=== PATIENT | male | born 1970 | race Caucasian/White ===

== ENCOUNTER 2016-11-17 13:43 | Emergency (ER) | payer SELFPAY ==
[~2016-11-17] VITALS: Ht 182.9 cm; Wt 105.0 kg
[2016-11-17 14:18] LABS: URINE BILIRUBIN - DIPSTICK NEGATIVE (NEGATIVE); URINE BLOOD DIPSTICK MODERATE (NEGATIVE); URINE CLARITY CLEAR; URINE COLOR YELLOW; URINE GLUCOSE - DIPSTICK NEGATIVE (NEGATIVE); URINE KETONE NEGATIVE (NEGATIVE); URINE LEUK ESTERASE NEGATIVE (NEGATIVE); URINE NITRITE - DIPSTICK NEGATIVE (Negative); URINE PH 5.5 (4.5-8.0); URINE PROTEIN - DIPSTICK 30 mg/dL (NEG-TRACE); URINE SPECIFIC GRAVITY 1.025; URINE UROBILINOGEN - DIPSTICK 0.2 E.U./dL (0.2)
[2016-11-17 14:19] LABS: HEMATOCRIT 45.3 % (39.0-50.0); HEMOGLOBIN 15.2 g/dl (14.0-18.0); IMMATURE GRANULOCYTES 0.8 % (0.0-1.0); MEAN CELL VOLUME 85.8 fL CALC (80.0-100.0); MEAN CORPUSCULAR HGB 28.8 pG CALC (26.0-32.0); MEAN CORPUSCULAR HGB CONC 33.6 g/L CALC (32.0-36.0); NEUT# 17.32 thou/uL (1.82-7.42); RED BLOOD COUNT 5.28 mill/uL (4.70-6.10); RED CELL DISTRI WIDTH 13.7 % (11.5-15.5)
[2016-11-17 14:51] LABS: ALKALINE PHOSPHATASE 98 u/l (38-126); AMYLASE < 30 u/l (30-110); ANION GAP 19 (6-22 (CALC)); BILIRUBIN, TOTAL 0.5 mg/dL (0.0-1.4); BUN 8 mg/dL (9-20); BUN/CREATININE RATIO 12 (12-20 (CALC)); CALCIUM 10.3 mg/dL (8.4-10.2); CARBON DIOXIDE 20 mmol/l (22-30); CHLORIDE 107 mmol/l (95-108); CREATININE 0.7 mg/dL (0.7-1.3); GFR > 60 ML/MIN (>=60 (CALC)); GFR FOR AFR.AMER. > 60 ML/MIN (>=60 (CALC)); GLUCOSE 115 mg/dL (75-110); LIPASE 36 u/l (23-300); POTASSIUM 4.1 mmol/l (3.5-5.1); SGOT/AST 37 u/l (17-59); SGPT/ALT 62 u/l (21-72); SODIUM 142 mmol/l (137-146); TOTAL PROTEIN 7.9 g/dL (6.3-8.2)
[2016-11-17 15:08] LABS: URINE SQUAMOUS EPITHELIAL CELL FEW EPI/hpf (0-FEW)
[2016-11-17 20:57] VITALS: BP 147/85
== END 2016-11-17 20:57 | disposition short-term general hospital (02) | DRG 392 ==
LOC: ED 13:43 → ED-I 14:08 → ED 20:57
PROVIDERS: Emergency Medicine
DX: K57.20 Diverticulitis of large intestine with perforation and abscess without bleeding (principal)
CPT/HCPCS: Q9967